=== PATIENT | female | born 1945 | race Caucasian/White ===

== ENCOUNTER 2022-08-23 11:57 | Day surgery (SDC) | payer MEDICARE ==
[~2022-08-23] VITALS: Ht 160 cm; Wt 74.9 kg
[2022-08-23] VITALS (10 sets, daily range): BP systolic 104–158; BP diastolic 57–76
[2022-08-23 12:56] LABS: BASOPHILS # (AUTO) 0.1 X10'3 (0-0.2); BASOPHILS % (AUTO) 1.1 % (0-1); EOSINOPHILS # (AUTO) 0.1 X10'3 (0-0.9); EOSINOPHILS % (AUTO) 0.9 % (0-6); HEMATOCRIT 44.6 % (35.0-45.0); HEMOGLOBIN 14.9 g/dl (12.0-16.0); LYMPHOCYTES # (AUTO) 1.4 X10'3 (1.1-4.8); LYMPHOCYTES % (AUTO) 21.4 % (21-51); MEAN CORPUSCULAR HEMOGLOBIN 30.3 PG (27.0-31.0); MEAN CORPUSCULAR HGB CONC 33.4 g/dL (33.0-36.5); MEAN CORPUSCULAR VOLUME 90.6 FL (78-98); MEAN PLATELET VOLUME 8.3 FL (7.4-10.4); MONOCYTES # (AUTO) 0.7 X10'3 (0-0.9); MONOCYTES % (AUTO) 9.8 % (2-12); NEUTROPHILS # (AUTO) 4.5 X10'3 (1.8-7.7); NEUTROPHILS % (AUTO) 66.8 % (42-75); PLATELET COUNT 364 X10'3 (140-440); RED BLOOD COUNT 4.92 X10'6 (4.20-5.60); RED CELL DISTRIBUTION WIDTH 13.8 % (11.5-14.5); WHITE BLOOD COUNT 6.7 X10'3 (4.5-11.0)
[2022-08-23 13:00] LABS: ALBUMIN 4.1 G/DL (3.4-5.0); ANION GAP 7 (8-16); BLOOD UREA NITROGEN 16 MG/DL (7-18); CALCIUM 9.4 MG/DL (8.5-10.1); CHLORIDE 103 MMOL/L (99-107); CREATININE 0.94 MG/DL (0.40-0.90); GLUCOSE 101 MG/DL (70-104); POTASSIUM 4.1 MMOL/L (3.5-5.1); SODIUM 138 MMOL/L (135-145); TOTAL CARBON DIOXIDE 27.6 MMOL/L (24-32); eGFR 58 ML/MIN
[2022-08-23] MEDS ORDERED: LOSA50TA64 PO (13:16)
[2022-08-23] MEDS ORDERED: LEVO75CA5 PO (13:16)
[2022-08-23] MEDS ORDERED: ASPI-1397 PO (13:16)
[2022-08-23] MEDS ORDERED: MULT-620 PO (13:16)
[2022-08-23] MEDS ORDERED: ROSU20TA31 PO (13:16)
[2022-08-23] MEDS ORDERED: normal saline 1,000 ML IV SCH (13:30)
[2022-08-23] MEDS ORDERED: diphenhydrAMINE 25mg capsule PO PRN (13:30)
[2022-08-23] MEDS ORDERED: LORazepam 0.5 MG tablet PO PRN (13:30)
[2022-08-23] MEDS ORDERED: LIDOcaine 1% (10mg/ml) 2ml vial ONE (15:29)
[2022-08-23] MEDS ORDERED: midazolam 1 mg/ML 2ml injection ONE (15:30)
[2022-08-23] MEDS ORDERED: nitroGLYCERIN-Tridil 50MG/D5W 250 ML IV ONE (15:30)
[2022-08-23] MEDS ORDERED: fentaNYL/PF 50MCG/1 ML 2ML syringe ONE (15:30)
[2022-08-23] MEDS ORDERED: verapamil 2.5 mg/ml inj IV ONE (15:30)
[2022-08-23] MEDS ORDERED: iohexol 350MG/ML 100ml bottle IV ONE (15:30)
[2022-08-23] MEDS ORDERED: heparin 1,000unit/ml 10ml vial 10 ML ONE (15:30)
[2022-08-23] MEDS ORDERED: HYDROcodone/acetaminophen 5mg/325mg tablet PO PRN (16:45)
[2022-08-23] MEDS ORDERED: HYDROcodone/acetaminophen 10/325mg tab PO PRN (16:45)
== END 2022-08-23 18:45 | disposition home or self-care (01) ==
LOC: SSTAY O 11:57
PROVIDERS: ATTEND Student in an Organized Health Care Education/Training Program
DX: R94.39 Abnormal result of other cardiovascular function study (principal); I25.10 Atherosclerotic heart disease of native coronary artery without angina pectoris; I10 Essential (primary) hypertension; E03.9 Hypothyroidism, unspecified; E78.5 Hyperlipidemia, unspecified; M19.90 Unspecified osteoarthritis, unspecified site; M85.80 Other specified disorders of bone density and structure, unspecified site; G62.9 Polyneuropathy, unspecified; Z79.899 Other long term (current) drug therapy; Z79.82 Long term (current) use of aspirin
CPT/HCPCS: 36415; 80048; 85025; 85610; 93005; 93458; 99152; A6258; J1644; J2250; J3010; J3490; J7030; Q0163; Q9967; A6402; C1894